=== PATIENT | male | born 1950 ===

== ENCOUNTER 2018-02-06 12:26 | Day surgery (SDC) | payer OTHER, MEDICARE ==
[2018-02-05 20:59] VITALS: BMI 26.6
[2018-02-06] MEDS ORDERED: Lidocaine 2% PF (10 ml) Amp ONE (16:40)
[2018-02-06] MEDS ORDERED: Adenosine 90 mg/30mL IV ONE ×3 (16:41→17:07)
[2018-02-06] MEDS ORDERED: Iodixanol 320 MG/ML 100 ML BOTTLE IV ONE (16:41)
[2018-02-06] MEDS ORDERED: Iodixanol 320 MG/ML 200 ML BOTTLE IV ONE (16:41)
[2018-02-06] MEDS ORDERED: Iohexol 350mgl/ml 50 ML ONE (16:41)
[2018-02-06] MEDS ORDERED: Heparin 2,000 ML IV ONE (16:41)
[2018-02-06] MEDS ORDERED: Midazolam 2 MG/2 ML VIAL ONE ×2 (17:03→17:16)
[2018-02-06] MEDS ORDERED: Sodium Chloride 0.9% 1,000 ML IV SCH (18:15)
[2018-02-06 20:40] VITALS: RESP 20; TEMP 98.8; O2SAT 97
--- NOTE | 2018-02-06 20:40 | CARD ---
APPROVED REPORT Date of service: 02/06/2018 EKG Measurement Heart [id number] <Conclusion> Sinus rhythm with occasional premature ventricular complexes Right bundle branch block Left anterior fascicular block Bifascicular block Inferior infarct, age undetermined Anterolateral infarct, age undetermined Abnormal ECG
--- NOTE | 2018-02-06 23:51 | CARDCATH ---
PROCEDURE DATE: 02/06/2018 INDICATIONS: Mr. Frederick Yarbrough is a 67-year-old male with past medical history significant for hypertension, diabetes, hyperlipidemia who presented to [facility] with [id number] ID. He was subsequently transferred over to [place] for cardiac catheterization. PROCEDURE PERFORMED: Left heart catheterization with selective left and right coronary angiogram, selective left internal mammary artery to left anterior descending angiogram, selective saphenous vein graft angiogram, left ventriculogram, 6-Korean right femoral arterial access, Mynx closure device for hemostasis. ANGIOGRAPHIC FINDINGS: Left main is a large size vessel, bifurcates into LAD and circumflex. LAD is diffusely diseased vessel. LAD mid 100% occluded. Diagonal high-grade proximal stenosis. Retrograde filling of the graft to diagonal noted. Comparative flow FRANCISCO to LAD noted. RCA patent with mid 65%-70% stenosis. No graft to the RCA identified. No graft to the circ system identified. FRANCISCO to LAD widely patent graft proximal 100% occluded with CLAUDIA 0 flow. INTERVENTION PERFORMED: Graft was wired with a left coronary bypass graft guiding catheter. A Whisper wire was used to negotiate through the 100% lesion, it was pre-dilated with a 1.5 balloon and subsequently with a 2.0 balloon, it stented with a 2.25 x 34 Ian drug-eluting stent regeneration from 100% to 0%, improvement in CLAUDIA flow upto CLAUDIA 3. IMPRESSION: Successful saphenous vein graft intervention with a drug-eluting stent, feeding the diagonal branch, ejection fraction 50%, end-diastolic pressure 17. RECOMMENDATIONS: The patient can be transferred back to [facility]. Continue patient on dual antiplatelet therapy for at least one year. Guideline-directed therapy for CAD. Consider staged PCI of mid RCA if the patient has clinical ischemic symptoms or a functional study with a nuclear stress test depending on the clinical symptoms. Dallas Mcdonough MD cc: Dr. Corrine Riojas at [place] cc: Dr. Cox at [facility] cc: Dr. Reardon at [facility]
[2018-02-07 01:53] VITALS: PULSE 91
[2018-02-07 01:54] VITALS: BP 114/76
== END 2018-02-06 22:30 | disposition short-term general hospital (02) ==
LOC: CATH 12:26 → 2RSO 14:02 → CATH 22:30
PROVIDERS: ATTEND Internal Medicine Interventional Cardiology
DX: I21.4 Non-ST elevation (NSTEMI) myocardial infarction (principal); I25.10 Atherosclerotic heart disease of native coronary artery without angina pectoris; I10 Essential (primary) hypertension; E11.9 Type 2 diabetes mellitus without complications; E78.5 Hyperlipidemia, unspecified; I45.10 Unspecified right bundle-branch block; Z79.84 Long term (current) use of oral hypoglycemic drugs
CPT/HCPCS: 85175; 93005; 93459; 99152; 99153; C1725 ×2; C1760; C1769 ×4; C1874; C1887 ×2; C1894; C9600; J0153; J1644 ×2; J2250; J3010; J7030; Q9966; Q9967 ×2